=== PATIENT | male | born 2000 | race Caucasian/White ===

== ENCOUNTER 2024-07-07 18:09 | Emergency (ER) | payer OTHER, SELFPAY ==
[2024-07-07 18:15] VITALS: BP 143/77; PULSE 72; TEMP 36.8; O2SAT 97; BMI 30.9
--- NOTE | 2024-07-07 18:17 | PC.NURSE ---
Patient wwas playing flag football and took a hit to left hip. Patient states he was hit so hard he went 3 or 4 foot in the air and then i landed on my left hip. patient c/o pain to left lateral hip but also endorsing pain in left groin and left testicle. pedal pulses intact, patient able to ambulate with pain
--- NOTE | 2024-07-07 18:21 | XR_ITS ---
The [address] [address] Patient Name: CEDRIC BHAKTA MRN: [id number] date: 2000 Sex: M Assigned Patient Location: ER Current Patient Location: Accession/Order Number: [id number] Exam Date: 07/07/2024 18:50 Report Date: 07/07/2024 20:19 At the request of: ANDRES PATTERSON Procedure: XR hip LT 2V w/ pelvis EXAM: XR hip LT 2V w/ pelvis HISTORY: The patient is a 24-year-old male, pain COMPARISON: None. FINDINGS: No fractures or cortical discontinuities are seen within the proximal left femur or left acetabulum. No displaced fractures are seen within the proximal right femur or elsewhere throughout the bony pelvis. The widths and alignment of both hip joints are maintained. The sacroiliac joints are maintained. The pubic symphysis is maintained. XR/XR hip LT 2V w/ pelvis IMPRESSION: No displaced fractures seen. Electronically authenticated by: LARS CLARK Date: 07/07/2024 20:19
[2024-07-07] MEDS: IBUPROFEN 400 MG TABLET 800 MG PO (18:42)
--- NOTE | 2024-07-07 19:18 | ED.GENADUL1 ---
HPI HPI - General Adult General Chief complaint: Extremity Injury, Lower Stated complaint: LEFT HIP INJURY Time Seen by Provider: 07/07/24 18:21 Source: patient History of Present Illness HPI narrative: 24-year-old male presents with chief complaint of left hip pain. Patient was playing flag football just prior to arrival tackled and someone fell landing on his left hip. Complains of left buttock and hip pain. Patient is able to ambulate but has tenderness. No leg shortening. No previous fracture to this extremity. No other injuries. Related Data Home Medications ?Medication ?Instructions ?Recorded ?Confirmed No Known Home Medications 07/07/24 07/07/24 Allergies Allergy/AdvReac Type Severity Reaction Status Date / Time No Known Drug Allergies Allergy Verified 07/07/24 18:17 Opioid HPI Opioid Management Most Recent Opioid Data: No Data to Display Review of Systems ROS Narrative All Systems are negative except as noted/marked.All systems reviewed and otherwise negative PFSH PFSH Social History Little interest or pleasure in doing things: not at all Feeling down, depressed, or hopeless: not at all Exam Narrative Exam Narrative: Nurses note and vital signs reviewed and patient is not hypoxic. General: The patient appears well and in no apparent distress. Patient is resting comfortably on cart. Skin: Warm, dry, no pallor noted. There is no rash noted. Head: Normocephalic, atraumatic Cardiovascular: Regular Rate and Rhythm Respiratory: Patient is in no distress, no accessory muscle use, lungs are clear to auscultation, no wheezing, rales or rhonchi Back: non-tender, no CVA tenderness bilaterally to percussion. Musculoskeletal: Left hip tenderness, no leg shortening, positive abduction and adduction ability. No left lower extremity weakness, the patient has no evidence of calf tenderness, no pitting edema, symmetrical pulses noted bilaterally Neurological: A&O x4, normal speech Psychiatric: Cooperative Constitutional Vital Signs, click to edit/add: Last Vital Signs Temp 98.2 F 07/07/24 18:15 Pulse 72 07/07/24 18:15 Resp 18 07/07/24 18:15 BP 143/77 H 07/07/24 18:15 Pulse Ox 97 07/07/24 18:15 O2 Del Method Room Air 07/07/24 18:15 Course Vital Signs Vital signs: Vital Signs Temperature 98.2 F 07/07/24 18:15 Pulse Rate 72 07/07/24 18:15 Respiratory Rate 18 07/07/24 18:15 Blood Pressure 143/77 H 07/07/24 18:15 Pulse Oximetry 97 07/07/24 18:15 Oxygen Delivery Method Room Air 07/07/24 18:15 Temperature 98.2 F 07/07/24 18:15 Pulse Rate 72 07/07/24 18:15 Respiratory Rate 18 07/07/24 18:15 Blood Pressure 143/77 H 07/07/24 18:15 Pulse Oximetry 97 07/07/24 18:15 Oxygen Delivery Method Room Air 07/07/24 18:15 Medical Decision Making MDM Narrative Medical decision making narrative: Patient present here chief complaint of left hip pain. He was playing football earlier today and fell landing on his hip and buttock and presents with pain. X-ray shows no acute deformity or fracture. Patient be discharged home with chief complaint of hip pain with a rice therapy and hip. Instructions. Discharged home with prescription for Robaxin. Patient may follow-up with Dr. menon as needed. Differential Diagnosis Differential Diagnosis: hip fracture, hip sprain Medical Records Medical records reviewed: Yes I reviewed the patient's medical records Imaging Data hip: Attestation: I have reviewed the pertinent imaging results. My impression: no acute fractue Discharge Plan Discharge Chief Complaint: Extremity Injury, Lower Clinical Impression: Hip pain Patient Disposition: Home, Self-Care Time of Disposition Decision: 19:12 Condition: Good Prescriptions / Home Meds: No Action No Known Home Medications Print Language: Icelandic Instructions: P.R.I.C.E. Treatment (ED), Hip Pain (ED) Referrals: Gianluca Menon MD [Physician] - 1 week
== END 2024-07-07 19:34 | disposition home or self-care (01) ==
PROVIDERS: Emergency Provider Emergency Medicine; PCP Family Medicine
DX: M25.552 Pain in left hip (principal)
CPT/HCPCS: 73502; 99283